=== PATIENT | male | born 1995 | race Caucasian/White ===

== ENCOUNTER 2021-08-06 01:08 | Emergency (ER) | payer OTHER ==
[~2021-08-06 01:08] MED LIST: FIORICET1 EACH PO; IBUPROFEN800 MG PO; NAPROXEN500 MG PO; NORCO 5-325 TA1 EACH PO; PERCOCET 5-3251 EACH PO; PREDNISONE 20MG20 MG PO; ROBAXIN750 MG PO; ZYRTEC10 M3 PO
== END 2021-08-06 05:16 | disposition home or self-care (01) ==
LOC: FER 01:08
DX: G43.909 Migraine, unspecified, not intractable, without status migrainosus (principal)
CPT/HCPCS: 96372; J0780; J1100; J1885; J3030; J3475; J7030